=== PATIENT | male | born 1995 | race Caucasian/White ===

== ENCOUNTER 2019-02-03 17:05 | Emergency (ER) | payer BC, OTHER | END 2019-02-03 19:19 | disposition home or self-care (01) | LOC: FTE 17:05 | DX: F41.9 Anxiety disorder, unspecified (principal); H66.001 Acute suppurative otitis media without spontaneous rupture of ear drum, right ear; R42 Dizziness and giddiness | CPT/HCPCS: 99283-25; Z7502 ==